=== PATIENT | male | born 1940 | race Caucasian/White ===

== ENCOUNTER 2016-04-02 10:46 | Emergency (ER) | payer OTHER ==
[~2016-04-02] VITALS: Ht 167.6 cm; Wt 81.0 kg
[2016-04-02] MEDS ORDERED: PRIMIDONE50 MG PO (13:51)
[2016-04-02] MEDS ORDERED: PROPRANOLOL HC120 MG PO (13:51)
[2016-04-02] MEDS ORDERED: CARBIDOPA/LEVO1 EACH PO (13:52)
[2016-04-02] MEDS ORDERED: ZESTORETIC 20-1 EAC1 PO (13:52)
[2016-04-02] MEDS ORDERED: ATORVASTATIN CA10 MG PO (13:52)
[2016-04-02] MEDS ORDERED: AMLODIPINE BESYL5 MG PO (13:52)
[2016-04-02] MEDS ORDERED: QUETIAPINE FUMA50 MG PO (13:53)
[2016-04-02] MEDS ORDERED: BUPROPION XL300 MG PO (13:53)
[2016-04-02] MEDS ORDERED: GABAPENTIN300 MG PO (13:53)
[2016-04-02] MEDS ORDERED: BUSPIRONE HCL15 MG PO (13:53)
[2016-04-02] MEDS ORDERED: NORCO 5/3251 TABLET PO (14:40)
[2016-04-02 15:16] VITALS: BP 133/74
== END 2016-04-02 15:25 | disposition home or self-care (01) ==
LOC: EME 10:46
DX: S22.31XA Fracture of one rib, right side, initial encounter for closed fracture (principal); W00.0XXA Fall on same level due to ice and snow, initial encounter; I10 Essential (primary) hypertension
CPT/HCPCS: 71020; 99281; 99284

== ENCOUNTER 2016-04-13 13:12 | Emergency (ER) | payer OTHER ==
[~2016-04-13] VITALS: Ht 167.6 cm; Wt 81.6 kg
[~2016-04-13 13:12] MED LIST: AMLODIPINE BESYL5 MG PO; ATORVASTATIN CA10 MG PO; BUPROPION XL300 MG PO; BUSPIRONE HCL15 MG PO; CARBIDOPA/LEVO1 EACH PO; GABAPENTIN300 MG PO; NORCO 5/3251 TABLET PO; PRIMIDONE50 MG PO; PROPRANOLOL HC120 MG PO; QUETIAPINE FUMA50 MG PO; ZESTORETIC 20-1 EAC1 PO
[2016-04-13] MEDS ORDERED: LIDODERM 5% P1 PATCH TD ×2 (20:20)
[2016-04-13 20:26] VITALS: BP 134/77
== END 2016-04-13 20:28 | disposition home or self-care (01) ==
LOC: EME 13:12 → RME 13:12
DX: S22.41XD Multiple fractures of ribs, right side, subsequent encounter for fracture with routine healing (principal); R07.89 Other chest pain; W00.0XXD Fall on same level due to ice and snow, subsequent encounter
CPT/HCPCS: 71020; 71250; 99281; 99284

== ENCOUNTER 2017-04-21 15:49 | Emergency (ER) | payer OTHER ==
[~2017-04-21] VITALS: Ht 170.2 cm; Wt 82.7 kg
[~2017-04-21 15:49] MED LIST changes: +LIDODERM 5% P1 PATCH TD
[2017-04-21] MEDS ORDERED: PROBIOTIC1 EAC1 PO (16:24)
[2017-04-21] MEDS ORDERED: PAROXETINE HCL30 MG PO (16:26)
[2017-04-21] MEDS ORDERED: ELIQUIS5 MG PO (16:28)
[2017-04-21] MEDS ORDERED: FLUTICASONE P15.8 ML BOTH NARES (16:30)
[2017-04-21] MEDS ORDERED: AUGMENTIN875 MG PO (16:30)
[2017-04-21] MEDS ORDERED: OMEGA-3 FISH O1 EAC9 PO (16:32)
[2017-04-21] MEDS ORDERED: [UNRECOGNIZED DRUG - OTHER] PO (16:32)
[2017-04-21] MEDS ORDERED: B-COMPLEX-VITA1 EACH PO (16:33)
[2017-04-21] MEDS ORDERED: [UNRECOGNIZED DRUG - OTHER] (16:35)
[2017-04-21] MEDS ORDERED: TESSALON200 MG PO (18:37)
[2017-04-21] MEDS ORDERED: ZITHROMAX Z-PA250 MG PO (18:37)
[2017-04-21 18:45] VITALS: BP 132/79
== END 2017-04-21 18:45 | disposition home or self-care (01) ==
LOC: EME 15:49
DX: J18.9 Pneumonia, unspecified organism (principal); S00.81XA Abrasion of other part of head, initial encounter; S00.31XA Abrasion of nose, initial encounter; S80.212A Abrasion, left knee, initial encounter; W01.0XXA Fall on same level from slipping, tripping and stumbling without subsequent striking against object, initial encounter; I10 Essential (primary) hypertension; I48.91 Unspecified atrial fibrillation; Z79.01 Long term (current) use of anticoagulants
CPT/HCPCS: 70160; 71046; 99281; 99284